=== PATIENT | male | born 1960 | race Caucasian/White ===

== ENCOUNTER 2017-05-08 09:52 | Day surgery (SDC) | payer OTHER ==
[~2017-05-08] VITALS: Ht 182.9 cm; Wt 98.7 kg
[~2017-05-08 09:52] MED LIST: LEVO175T6 PO
[2017-05-08] MEDS ORDERED: LEVOTHYROXINE (10:39)
[2017-05-08] MEDS ORDERED: [UNRECOGNIZED DRUG - REMARK] (10:39)
[2017-05-08 10:59] VITALS: BP 124/82; PULSE 61; RESP 17
[2017-05-08] MEDS ORDERED: FENTAnyl 50 MCG/ML VIAL ONE (11:50)
[2017-05-08] MEDS ORDERED: MIDAZOLAM 1 MG/ML 2 ML INJ ONE ×2 (11:50)
--- NOTE | 2017-05-08 11:55 | OPPN ---
Date/Time of Note Date/Time of Note DATE: 05/08/17 TIME: 11:49 Proc Note GI Procedure date: May 08, 2017 Pre-procedure Diagnosis Rule out colon polyps rule out colitis Post-procedure Diagnosis Diverticulosis Minimal external hemorrhoids Operation Performed Colonoscopy Surgeon: NIRMAL BENITEZ MD Anesthesia Type: moderate sedation Tourniquet Time: None Estimated blood loss: none Transfusion Required: no Specimen: none Grafts/Implants: none Tubes/Drains None Complications: no Complications None Pt Condition post procedure: stable Disposition: other Indications Rule out colon polyps Operative\Procedure Findings Diverticulosis External hemorrhoids Procedure Description After informed written consent is obtained patient was asked to lay on the left lateral side 3 mg Versed 75 mcg of fentanyl was given as intravenous anesthesia The patient become somnolent Olympus video colonoscope was introduced into the rectum and scope was advanced all the way to the cecum Mucosa appeared normal. Moderate degree of diverticulosis was noted in the descending colon No bleeding noted No neoplasm noted Revealed no additional abnormalities detected retroflexion was performed no internal hemorrhoids were noted but when the scope was withdrawn minimal external hemorrhoids were noted and the procedure was terminated Plan recommend further workup if indicated cc; Dr. Benitez and Dr. Hayley carroll in [place] NIRMAL BENITEZ MD May 08, 2017 11:55
== END 2017-05-08 13:28 | disposition home or self-care (01) ==
LOC: GIL 09:52
PROVIDERS: ATTEND Internal Medicine Gastroenterology
DX: Z12.11 Encounter for screening for malignant neoplasm of colon (principal); K57.90 Diverticulosis of intestine, part unspecified, without perforation or abscess without bleeding; K64.8 Other hemorrhoids
CPT/HCPCS: 45378; J2250; J3010; Z7610